=== PATIENT | male | born 1980 | race Caucasian/White ===

== ENCOUNTER 2016-07-26 11:34 | Inpatient (IN) | payer OTHER ==
[~2016-07-26] VITALS: Ht 190.5 cm; Wt 83.3 kg
--- NOTE | ~2016-07-26 | WRIGHTHP ---
[place], [place] PATIENT HISTORY AND PHYSICAL EXAM NAME: CARTER QUEZADA [facility] #: [id number] UNIT #: [id number] ROOM: 516 DOCTOR: HAYLIE HENDERSON DO BIRTHDATE: [birth year] DOS: PRIMARY CARE PHYSICIAN: None. The patient was seen and evaluated with the resident on 07/26/2016. Please see the resident's note for further details. ASSESSMENT: 1. Opiate dependence with acute withdrawal. 2. IV heroin abuse. 3. Normocytic anemia. 4. Hepatitis C diagnosed in 2009, which has never been treated. 5. Tobacco abuse. 6. Cocaine abuse. 7. Amphetamine abuse. 8. Depression. 9. Anxiety. PLAN: Continue medical stabilization with the current protocol. Continue supportive care. HAYLIE HENDERSON DO CM:HISPHYS:PATIENT HISTORY AND PHYSICAL EXAMINATION [id number] HAYLIE HENDERSON DO 07/26/16 1728 interface
[2016-07-26 13:05] LABS: BASO % 0.7 % (0.0-1.0); EOS # 0.3 10*3/uL (0.0-0.4); HEMATOCRIT 38.8 % (42.0-52.0); HEMOGLOBIN 13.1 g/dl (14.0-18.0); LYMPH # 2.2 10*3/uL (1.3-4.4); LYMPH % 38.1 % (27.0-41.0); MEAN CELL VOLUME 85.7 fl (80.0-94.0); MEAN CORPUSCULAR HGB 28.9 pg (27.0-31.0); MEAN CORPUSCULAR HGB CONC 33.8 g/dl (33.0-37.0); MEAN PLATELET VOLUME 9.7 fl (9.6-12.3); MONO # 0.4 10*3/uL (0.1-1.0); MONO % 6.5 % (3.0-9.0); NEUT # 2.9 10*3/uL (2.3-7.9); NEUT % 49.5 % (47.0-73.0); PLATELET COUNT AUTOMATED 181 10*3/uL (130-400); RED BLOOD COUNT 4.53 10*6/uL (4.50-5.90); RED CELL DISTRI WIDTH 13.7 % (0-14.5); WHITE BLOOD COUNT 5.8 10*3/uL (4.8-10.8)
[2016-07-26 13:14] LABS: INTERNATIONAL NORM RATIO 1.1 (2.0-3.5); PROTHROMBIN TIME 11.6 SECONDS (9.0-12.4)
[2016-07-26] MEDS ORDERED: KLONOPIN0.5 MG PO (13:18)
[2016-07-26] MEDS ORDERED: NEURONTIN800 MG PO (13:18)
[2016-07-26] MEDS ORDERED: CYMBALTA60 MG PO (13:19)
[2016-07-26] MEDS ORDERED: PHENERGAN25 M3 PO (13:19)
[2016-07-26] MEDS ORDERED: SEROQUEL400 M1 PO (13:19)
[2016-07-26 13:20] VITALS: BP 138/83
[2016-07-26 13:24] LABS: ALBUMIN 3.5 gm/dl (3.1-4.5); ALKALINE PHOSPHATASE 103 U/L (45-117); BILIRUBIN, TOTAL 0.7 mg/dl (0.2-1.0); BUN 6 mg/dl (7-24); CARBON DIOXIDE 28 mmol/L (21-32); CHLORIDE 102 mmol/L (98-107); EST GLOM FILT AFRICAN AMERICAN > 60 ml/min; GLUCOSE 103 mg/dL (65-99); POTASSIUM 3.9 mmol/L (3.5-5.1); SGOT/AST 36 IU/L (3-35); SGPT/ALT 37 U/L (12-78); SODIUM 137 mmol/L (136-145); TOTAL PROTEIN 9.2 gm/dL (6.4-8.2)
[2016-07-26 13:33] LABS: BILIRUBIN NEGATIVE (NEGATIVE); BLOOD NEGATIVE (NEGATIVE); CLARITY CLEAR (CLEAR); COLOR YELLOW (YELLOW); GLUCOSE NEGATIVE (NEGATIVE); KETONE NEGATIVE (NEGATIVE); LEUKO ESTERASE NEGATIVE (NEGATIVE); NITRITE NEGATIVE (NEGATIVE); PH 7.5 (5.0-9.0); PROTEIN NEGATIVE (NEGATIVE)
[2016-07-26 13:36] LABS: URINE AMPHETAMINES > 1000 (1000ng/ml); URINE BARBITURATES < 200 (200ng/ml); URINE COCAINE > 300 (300ng/ml)
[2016-07-26 13:46] LABS: URINE REFLEX COMMENT NO (NO); WBC 0-2 wbc/hpf (0-5)
[2016-07-26 16:00] VITALS: BP 134/76
[2016-07-26 20:00] VITALS: BP 108/82
[2016-07-27] VITALS: BP 97/58
[2016-07-27 08:00] VITALS: BP 125/88
== END 2016-07-27 09:58 | disposition left against medical advice (07) | DRG 894 ==
LOC: 5E 11:34
PROVIDERS: Emergency Medicine
DX: F11.23 Opioid dependence with withdrawal (principal); F32.9 Major depressive disorder, single episode, unspecified; G25.81 Restless legs syndrome; F14.10 Cocaine abuse, uncomplicated; F15.10 Other stimulant abuse, uncomplicated; F17.200 Nicotine dependence, unspecified, uncomplicated; B18.2 Chronic viral hepatitis C; F41.1 Generalized anxiety disorder; D64.9 Anemia, unspecified; F39 Unspecified mood [affective] disorder; Z53.21 Procedure and treatment not carried out due to patient leaving prior to being seen by health care provider; Z90.49 Acquired absence of other specified parts of digestive tract; Z80.49 Family history of malignant neoplasm of other genital organs; Z80.51 Family history of malignant neoplasm of kidney; Z79.899 Other long term (current) drug therapy

== ENCOUNTER 2016-09-01 14:26 | Inpatient (IN) | payer OTHER ==
[~2016-09-01] VITALS: Ht 190.5 cm; Wt 83.1 kg
[~2016-09-01 14:26] MED LIST: CYMBALTA60 MG PO; KLONOPIN0.5 MG PO; NEURONTIN800 MG PO; PHENERGAN25 M3 PO; SEROQUEL400 M1 PO
[2016-09-01 14:34] VITALS: BP 123/56
[2016-09-01 15:12] LABS: BASO % 0.5 % (0.0-1.0); EOS # 0.1 10*3/uL (0.0-0.4); EOS % 1.6 % (1.0-4.0); HEMATOCRIT 38.7 % (42.0-52.0); HEMOGLOBIN 12.8 g/dl (14.0-18.0); LYMPH # 2.4 10*3/uL (1.3-4.4); LYMPH % 37.8 % (27.0-41.0); MEAN CELL VOLUME 88.4 fl (80.0-94.0); MEAN CORPUSCULAR HGB 29.2 pg (27.0-31.0); MEAN CORPUSCULAR HGB CONC 33.1 g/dl (33.0-37.0); MONO # 0.4 10*3/uL (0.1-1.0); MONO % 6.2 % (3.0-9.0); NEUT # 3.5 10*3/uL (2.3-7.9); NEUT % 53.7 % (47.0-73.0); PLATELET COUNT AUTOMATED 187 10*3/uL (130-400); RED BLOOD COUNT 4.38 10*6/uL (4.50-5.90); RED CELL DISTRI WIDTH 13.9 % (0-14.5); WHITE BLOOD COUNT 6.5 10*3/uL (4.8-10.8)
[2016-09-01 15:13] LABS: BILIRUBIN 2+ (NEGATIVE); BLOOD NEGATIVE (NEGATIVE); CLARITY SL CLOUDY (CLEAR); COLOR YELLOW (YELLOW); GLUCOSE NEGATIVE (NEGATIVE); KETONE TRACE (NEGATIVE); LEUKO ESTERASE NEGATIVE (NEGATIVE); NITRITE POSITIVE (NEGATIVE); PROTEIN 1+ (NEGATIVE)
[2016-09-01 15:23] LABS: BACTERIA TRACE; EPITHELIAL CELLS 0-2; MUCOUS 3+; URINE REFLEX COMMENT YES (NO); WBC 0-2 wbc/hpf (0-5)
[2016-09-01 15:27] LABS: ALBUMIN 3.7 gm/dl (3.1-4.5); ALKALINE PHOSPHATASE 118 U/L (45-117); BILIRUBIN, TOTAL 0.9 mg/dl (0.2-1.0); BUN 9 mg/dl (7-24); CARBON DIOXIDE 28 mmol/L (21-32); CHLORIDE 107 mmol/L (98-107); EST GLOM FILT AFRICAN AMERICAN > 60 ml/min; GLUCOSE 132 mg/dL (65-99); SGOT/AST 171 IU/L (3-35); SGPT/ALT 256 U/L (12-78); SODIUM 144 mmol/L (136-145); TOTAL PROTEIN 8.4 gm/dL (6.4-8.2)
[2016-09-01 15:29] LABS: URINE AMPHETAMINES < 1000 (1000ng/ml); URINE BARBITURATES > 200 (200ng/ml); URINE COCAINE > 300 (300ng/ml)
[2016-09-01 15:35] LABS: THYROID STIM HORMONE (HS) 0.853 uIU/ml (0.358-4.75)
[2016-09-01 15:55] VITALS: BP 97/67
[2016-09-01] MEDS ORDERED: PHENERGAN25 M3 PO (17:51)
[2016-09-01 20:00] VITALS: BP 93/48
[2016-09-02] VITALS: BP 96/54
[2016-09-02 04:00] VITALS: BP 115/82
[2016-09-02 08:00] VITALS: BP 113/68
[2016-09-02 16:00] VITALS: BP 113/75
[2016-09-02 20:00] VITALS: BP 101/57
[2016-09-03] VITALS: BP 101/54
[2016-09-03 08:00] VITALS: BP 116/73
== END 2016-09-03 14:03 | disposition left against medical advice (07) | DRG 894 ==
LOC: ED 14:26 → 5E 14:47 → EDHOLD 14:47 → 5E 15:22
PROVIDERS: Nurse Practitioner Family
DX: F11.23 Opioid dependence with withdrawal (principal); R82.2 Biliuria; F13.239 Sedative, hypnotic or anxiolytic dependence with withdrawal, unspecified; R82.71 Bacteriuria; D64.9 Anemia, unspecified; R73.9 Hyperglycemia, unspecified; F41.1 Generalized anxiety disorder; F32.9 Major depressive disorder, single episode, unspecified; F17.210 Nicotine dependence, cigarettes, uncomplicated; F14.10 Cocaine abuse, uncomplicated; B18.2 Chronic viral hepatitis C; F10.239 Alcohol dependence with withdrawal, unspecified; E55.9 Vitamin D deficiency, unspecified; Z53.21 Procedure and treatment not carried out due to patient leaving prior to being seen by health care provider; Z71.6 Tobacco abuse counseling; Z90.49 Acquired absence of other specified parts of digestive tract; Z80.49 Family history of malignant neoplasm of other genital organs; Z80.51 Family history of malignant neoplasm of kidney; Z79.899 Other long term (current) drug therapy

== ENCOUNTER 2016-11-06 15:44 | Inpatient (IN) | payer OTHER ==
[~2016-11-06] VITALS: Ht 190.5 cm; Wt 84.8 kg
[2016-11-06 16:19] VITALS: BP 118/86
[2016-11-06] MEDS ORDERED: SUBOXONE 8 MG-1 EACH SL (16:19)
[2016-11-06 17:00] VITALS: BP 125/72
[2016-11-06 17:27] LABS: BILIRUBIN NEGATIVE (NEGATIVE); BLOOD NEGATIVE (NEGATIVE); CLARITY CLEAR (CLEAR); COLOR YELLOW (YELLOW); GLUCOSE NEGATIVE (NEGATIVE); KETONE TRACE (NEGATIVE); LEUKO ESTERASE NEGATIVE (NEGATIVE); NITRITE NEGATIVE (NEGATIVE); PH 5.5 (5.0-9.0); PROTEIN TRACE (NEGATIVE); SPECIFIC GRAVITY >= 1.030 (1.005-1.030)
[2016-11-06 17:32] LABS: BACTERIA 1+; EPITHELIAL CELLS 0-2; RBC 0-2 rbc/hpf (0-2); URINE REFLEX COMMENT NO (NO); WBC 0-2 wbc/hpf (0-5)
[2016-11-06 17:36] LABS: URINE AMPHETAMINES < 1000 (1000ng/ml); URINE BARBITURATES < 200 (200ng/ml); URINE COCAINE > 300 (300ng/ml)
[2016-11-06 17:54] LABS: BASO % 0.6 % (0.0-1.0); EOS # 0.2 10*3/uL (0.0-0.4); EOS % 4.2 % (1.0-4.0); HEMATOCRIT 36.7 % (42.0-52.0); HEMOGLOBIN 12.5 g/dl (14.0-18.0); LYMPH # 2.2 10*3/uL (1.3-4.4); LYMPH % 44.7 % (27.0-41.0); MEAN CELL VOLUME 88.9 fl (80.0-94.0); MEAN CORPUSCULAR HGB 30.3 pg (27.0-31.0); MEAN CORPUSCULAR HGB CONC 34.1 g/dl (33.0-37.0); MEAN PLATELET VOLUME 9.7 fl (9.6-12.3); MONO # 0.5 10*3/uL (0.1-1.0); MONO % 9.5 % (3.0-9.0); NEUT % 40.8 % (47.0-73.0); PLATELET COUNT AUTOMATED 133 10*3/uL (130-400); RED BLOOD COUNT 4.13 10*6/uL (4.50-5.90); RED CELL DISTRI WIDTH 13.8 % (0-14.5)
[2016-11-06 18:12] LABS: ALBUMIN 3.6 gm/dl (3.1-4.5); ALKALINE PHOSPHATASE 103 U/L (45-117); BILIRUBIN, TOTAL 0.6 mg/dl (0.2-1.0); BUN 14 mg/dl (7-24); CARBON DIOXIDE 30 mmol/L (21-32); CHLORIDE 104 mmol/L (98-107); EST GLOM FILT AFRICAN AMERICAN > 60 ml/min; GLUCOSE 81 mg/dL (65-99); POTASSIUM 3.6 mmol/L (3.5-5.1); SGOT/AST 29 IU/L (3-35); SGPT/ALT 42 U/L (12-78); SODIUM 140 mmol/L (136-145)
[2016-11-06 20:00] VITALS: BP 122/67
[2016-11-07] VITALS: BP 111/60
[2016-11-07 08:00] VITALS: BP 115/69
[2016-11-07] MEDS ORDERED: CYMBALTA60 MG PO (11:17)
[2016-11-07 12:00] VITALS: BP 133/72
[2016-11-07 16:00] VITALS: BP 127/82
== END 2016-11-07 18:20 | disposition left against medical advice (07) | DRG 894 ==
LOC: ED 15:44 → 5E 16:35 → EDHOLD 16:35 → 5E 16:40
PROVIDERS: Registered Nurse
DX: F11.23 Opioid dependence with withdrawal (principal); F32.9 Major depressive disorder, single episode, unspecified; F17.210 Nicotine dependence, cigarettes, uncomplicated; D64.9 Anemia, unspecified; F14.10 Cocaine abuse, uncomplicated; F41.1 Generalized anxiety disorder; Z53.21 Procedure and treatment not carried out due to patient leaving prior to being seen by health care provider; Z79.899 Other long term (current) drug therapy; Z90.49 Acquired absence of other specified parts of digestive tract; Z80.51 Family history of malignant neoplasm of kidney; Z80.49 Family history of malignant neoplasm of other genital organs

== ENCOUNTER 2016-12-10 13:20 | Inpatient (IN) | payer OTHER ==
[~2016-12-10] VITALS: Ht 190.5 cm; Wt 85.7 kg
[~2016-12-10 13:20] MED LIST changes: +SUBOXONE 8 MG-1 EACH SL
[2016-12-10 13:37] VITALS: BP 101/88
[2016-12-10 14:24] LABS: BASO % 0.4 % (0.0-1.0); EOS # 0.2 10*3/uL (0.0-0.4); EOS % 2.2 % (1.0-4.0); HEMATOCRIT 38.9 % (42.0-52.0); HEMOGLOBIN 12.6 g/dl (14.0-18.0); LYMPH # 2.3 10*3/uL (1.3-4.4); LYMPH % 32.4 % (27.0-41.0); MEAN CELL VOLUME 89.2 fl (80.0-94.0); MEAN CORPUSCULAR HGB 28.9 pg (27.0-31.0); MEAN CORPUSCULAR HGB CONC 32.4 g/dl (33.0-37.0); MEAN PLATELET VOLUME 9.6 fl (9.6-12.3); MONO # 0.4 10*3/uL (0.1-1.0); MONO % 5.2 % (3.0-9.0); NEUT # 4.2 10*3/uL (2.3-7.9); NEUT % 59.5 % (47.0-73.0); PLATELET COUNT AUTOMATED 166 10*3/uL (130-400); RED BLOOD COUNT 4.36 10*6/uL (4.50-5.90); RED CELL DISTRI WIDTH 13.5 % (0-14.5); WHITE BLOOD COUNT 7.1 10*3/uL (4.8-10.8)
[2016-12-10 14:41] LABS: ALBUMIN 3.5 gm/dl (3.1-4.5); ALKALINE PHOSPHATASE 109 U/L (45-117); BUN 6 mg/dl (7-24); CHLORIDE 102 mmol/L (98-107); CREATININE 0.95 mg/dL (0.70-1.30); MAGNESIUM 2.1 mg/dL (1.5-2.1); POTASSIUM 3.7 mmol/L (3.5-5.1); SGOT/AST 104 IU/L (3-35); SGPT/ALT 207 U/L (12-78); SODIUM 139 mmol/L (136-145)
[2016-12-10 15:14] LABS: BILIRUBIN 1+ (NEGATIVE); BLOOD NEGATIVE (NEGATIVE); CLARITY SL CLOUDY (CLEAR); COLOR YELLOW (YELLOW); GLUCOSE NEGATIVE (NEGATIVE); KETONE TRACE (NEGATIVE); LEUKO ESTERASE NEGATIVE (NEGATIVE); NITRITE NEGATIVE (NEGATIVE); SPECIFIC GRAVITY 1.025 (1.005-1.030)
[2016-12-10 15:20] LABS: BACTERIA 1+; EPITHELIAL CELLS 0-2; MUCOUS 1+; RBC 0-2 rbc/hpf (0-2)
[2016-12-10 15:23] LABS: URINE AMPHETAMINES < 1000 (1000ng/ml); URINE BARBITURATES < 200 (200ng/ml); URINE BENZODIAZEPINES > 200 (200ng/ml); URINE CANNABINOIDS (THC) > 50 (50ng/ml); URINE COCAINE < 300 (300ng/ml); URINE METHADONE > 300 (300ng/ml); URINE OPIATES > 300 (300ng/ml)
[2016-12-10 15:24] LABS: URINE PHENCYCLIDINE < 25 (25ng/ml)
[2016-12-10] MEDS ORDERED: SEROQUEL100 MG PO (17:11)
[2016-12-10 17:24] VITALS: BP 121/72
--- NOTE | 2016-12-10 17:33 | NUR ---
36 year old male admitted to room # 516 for stabilization. Reports an addiction to heroin last used yesterday 12/09/16 prior to admission. Compliant with admission procedure. Patient states anxiety, able to sit still, compliant with admission process able to focus eyes on nurse during interview. See assessment forms for additional information about patient status.
[2016-12-10 17:46] LABS: INTERNATIONAL NORM RATIO 1.1 (2.0-3.5)
--- NOTE | 2016-12-10 18:14 | NUR ---
PT COMPLAINING NAUSEA, ANXIETY, MUSCLE ACHES AND STATES CRAVING FOR HEROIN. PRN MEDICAIONS GIVEN, SEE MAR.
--- NOTE | 2016-12-10 18:58 | NUR ---
VARIFIED PTS HOME MEDICAION WITH [facility]. SOME CHANGES MADE, NOTIFIED DR. TRUONG.
[2016-12-10 20:00] VITALS: BP 122/73
--- NOTE | 2016-12-10 20:00 | NUR ---
PT. RESTING IN BED; VOICES NO C/O AT THIS TIME. CALL LIGHT WITHIN REACH.
--- NOTE | 2016-12-10 22:00 | NUR ---
TOOK PO MEDICATIONS WITHOUT DIFFICULTY. ALSO MEDICATED WITH REQUIP FOR RESTLESS LEGS.
[2016-12-11] VITALS: BP 98/54
[2016-12-11 04:00] VITALS: BP 103/71
--- NOTE | 2016-12-11 04:00 | NUR ---
RESTING IN BED WITH EYES CLOSED. MEDICATIONS GIVEN EARLIER APPARENTLY EFFECTIVE.
--- NOTE | 2016-12-11 06:00 | NUR ---
RESTING IN BED WITH EYES CLOSED. CALL LIGHT WITHIN REACH.
[2016-12-11 08:00] VITALS: BP 119/63
--- NOTE | 2016-12-11 09:00 | NUR ---
PT C/O WITHDRAWL SYMPTOMS AND REQUESTED PRN MEDICATIONS, ADMINISTERED KLONOPIN AND ROBAXIN, PT REPORTED NAUSEA AND REQUESTED MEDICATION, ZOFRAN WAS ORDERED AND PT REFUSED ZOFRAN STATING THAT HE WANTS PHENERGAN, AWAITING ORDER FOR PHENERGAN
--- NOTE | 2016-12-11 09:03 | NUR ---
PT REFUSEDOVENOX AT THIS TIME, EDUCATION PROVIDED ON THE IMPORTANCE OF TAKING MEDICATION, INEFFECTIVE AT THIS TIME
[2016-12-11 12:00] VITALS: BP 125/75
--- NOTE | 2016-12-11 14:30 | NUR ---
PT LEFT AMA
== END 2016-12-11 14:30 | disposition left against medical advice (07) | DRG 894 ==
LOC: ED 13:20 → 5E 14:13 → EDHOLD 14:13 → 5E 15:38
PROVIDERS: Emergency Medicine; Internal Medicine; ADMIT Internal Medicine
DX: F11.23 Opioid dependence with withdrawal (principal); F33.9 Major depressive disorder, recurrent, unspecified; B19.20 Unspecified viral hepatitis C without hepatic coma; F13.230 Sedative, hypnotic or anxiolytic dependence with withdrawal, uncomplicated; F41.1 Generalized anxiety disorder; F19.90 Other psychoactive substance use, unspecified, uncomplicated; D64.9 Anemia, unspecified; Z53.21 Procedure and treatment not carried out due to patient leaving prior to being seen by health care provider; F10.10 Alcohol abuse, uncomplicated; R74.0 Nonspecific elevation of levels of transaminase and lactic acid dehydrogenase [LDH]; Z71.6 Tobacco abuse counseling; Z79.899 Other long term (current) drug therapy; Z90.49 Acquired absence of other specified parts of digestive tract; Z72.0 Tobacco use; Z80.8 Family history of malignant neoplasm of other organs or systems

== ENCOUNTER 2017-10-07 17:37 | Inpatient (IN) | payer OTHER ==
[~2017-10-07] VITALS: Ht 190.5 cm; Wt 76.8 kg
--- NOTE | ~2017-10-07 | EKG ---
[place], [place] ELECTROCARDIOGRAM REPORT NAME: CARTER QUEZADA UNIT #: [id number] ROOM: [facility] DOCTOR: JC DRAFT REPORT BIRTHDATE: [birth year] [facility] Test Date: 2017-10-07 Test Time: 18:33:09 Pat Name: CARTER QUEZADA Department: Room: Gender: Vehicle Return Associate: IMAN : 1980 Requested By: HAYLIE HENDERSON Order Number: [id number] Reading MD: Belinda Clements MD Measurements Intervals [place] Rate: 68 P: 32 W[place]: 148 QRS: 58 QRSD: 94 T: 42 QT: 384 QTc: 409 Interpretive Statements Sinus rhythm ST elev, probable normal early repol pattern Electronically Signed On 10-08-2017 8:18:22 PDT by Belinda Clements MD CM:EKGRPT:ELECTROCARDIOGRAM REPORT [id number] HAYLIE JONES DRAFT REPORT HAYLIE HENDERSON DO
[~2017-10-07 17:37] MED LIST changes: +SEROQUEL100 MG PO
[2017-10-07 17:40] VITALS: BP 113/72
[2017-10-07 18:18] LABS: BILIRUBIN 1+ (NEGATIVE); BLOOD NEGATIVE (NEGATIVE); CLARITY CLEAR (CLEAR); COLOR YELLOW (YELLOW); GLUCOSE NEGATIVE (NEGATIVE); KETONE TRACE (NEGATIVE); LEUKO ESTERASE NEGATIVE (NEGATIVE); NITRITE NEGATIVE (NEGATIVE); PH 5.5 (5.0-9.0); SPECIFIC GRAVITY >= 1.030 (1.005-1.030)
[2017-10-07 18:25] LABS: URINE AMPHETAMINES < 1000 (1000ng/ml); URINE BARBITURATES > 200 (200ng/ml); URINE BENZODIAZEPINES > 200 (200ng/ml); URINE CANNABINOIDS (THC) < 50 (50ng/ml); URINE COCAINE > 300 (300ng/ml); URINE METHADONE < 300 (300ng/ml); URINE OPIATES < 300 (300ng/ml); URINE PHENCYCLIDINE < 25 (25ng/ml)
[2017-10-07 18:30] LABS: BASO % 0.6 % (0.0-1.0); EOS # 0.2 10*3/uL (0.0-0.4); EOS % 4.4 % (1.0-4.0); HEMATOCRIT 38.7 % (42.0-52.0); HEMOGLOBIN 13.1 g/dl (14.0-18.0); LYMPH # 2.5 10*3/uL (1.3-4.4); LYMPH % 47.5 % (27.0-41.0); MEAN CELL VOLUME 85.4 fl (80.0-94.0); MEAN CORPUSCULAR HGB 28.9 pg (27.0-31.0); MEAN CORPUSCULAR HGB CONC 33.9 g/dl (33.0-37.0); MEAN PLATELET VOLUME 10.3 fl (9.6-12.3); MONO # 0.4 10*3/uL (0.1-1.0); MONO % 6.6 % (3.0-9.0); NEUT # 2.2 10*3/uL (2.3-7.9); NEUT % 40.7 % (47.0-73.0); PLATELET COUNT AUTOMATED 142 10*3/uL (130-400); RED BLOOD COUNT 4.53 10*6/uL (4.50-5.90); RED CELL DISTRI WIDTH 13.9 % (0-14.5); WHITE BLOOD COUNT 5.3 10*3/uL (4.8-10.8)
[2017-10-07 18:32] LABS: BACTERIA TRACE; MUCOUS 2+; WBC 0-2 wbc/hpf (0-5)
[2017-10-07 18:45] LABS: ALBUMIN 3.8 gm/dl (3.1-4.5); ALKALINE PHOSPHATASE 92 U/L (45-117); BUN 11 mg/dl (7-24); CHLORIDE 106 mmol/L (98-107); LIPASE 70 U/L (73-393); POTASSIUM 3.7 mmol/L (3.5-5.1); SGOT/AST 16 IU/L (3-35); SGPT/ALT 23 U/L (12-78); SODIUM 141 mmol/L (136-145); TOTAL PROTEIN 8.1 gm/dL (6.4-8.2)
[2017-10-07 18:46] LABS: ETHYL ALCOHOL < 3.0 mg/dl (<3)
[2017-10-07 19:16] LABS: ACT PARTIAL THROMBO TIME 26.1 SECONDS (20.8-31.5); INTERNATIONAL NORM RATIO 1.1 (2.0-3.5)
[2017-10-07 19:50] VITALS: BP 123/65
[2017-10-07 20:00] VITALS: BP 142/690
[2017-10-07] MEDS ORDERED: GABAPENTIN800 MG PO (20:18)
[2017-10-07] MEDS ORDERED: QUETIAPINE FUM100 M3 PO (20:19)
[2017-10-07] MEDS ORDERED: PHENERGAN25 M3 PO (20:19)
[2017-10-07] MEDS ORDERED: 'CLONIDINE0.1 MG PO (20:19)
[2017-10-07] MEDS ORDERED: BUPRENORPHINE HY8 MG SL (20:21)
[2017-10-08] VITALS: BP 92/52
[2017-10-08 08:00] VITALS: BP 97/57
[2017-10-09 06:13] LABS: HIV 1+2 AB + HIV1 P24 AG Non Reactive (Non Reactive)
== END 2017-10-08 14:31 | disposition left against medical advice (07) | DRG 894 ==
LOC: ED 17:37 → 5E 18:17 → EDHOLD 18:17 → 5E 19:03
PROVIDERS: Emergency Medicine; Internal Medicine
DX: F11.23 Opioid dependence with withdrawal (principal); F11.29 Opioid dependence with unspecified opioid-induced disorder; L02.413 Cutaneous abscess of right upper limb; L02.414 Cutaneous abscess of left upper limb; B19.20 Unspecified viral hepatitis C without hepatic coma; F32.9 Major depressive disorder, single episode, unspecified; F14.10 Cocaine abuse, uncomplicated; D64.9 Anemia, unspecified; F41.1 Generalized anxiety disorder; F13.239 Sedative, hypnotic or anxiolytic dependence with withdrawal, unspecified; R73.9 Hyperglycemia, unspecified; R82.71 Bacteriuria; Z53.21 Procedure and treatment not carried out due to patient leaving prior to being seen by health care provider; Z72.0 Tobacco use; Z71.6 Tobacco abuse counseling; Z90.49 Acquired absence of other specified parts of digestive tract; Z80.51 Family history of malignant neoplasm of kidney; Z80.8 Family history of malignant neoplasm of other organs or systems; Z79.899 Other long term (current) drug therapy

== ENCOUNTER 2018-07-14 10:26 | Inpatient (IN) | payer OTHER ==
[~2018-07-14] VITALS: Ht 190.5 cm; Wt 82.6 kg
--- NOTE | ~2018-07-14 | EKG ---
[place], [place] ELECTROCARDIOGRAM REPORT NAME: CARTER QUEZADA UNIT #: [id number] ROOM: 532 DOCTOR: JC DRAFT REPORT BIRTHDATE: [birth year] [facility] Test Date: 2018-07-14 Test Time: 14:01:41 Pat Name: CARTER QUEZADA Department: Room: 532 1 Gender: M Lead Housekeeper: Esther Lopez : 1980 Requested By: HAL LYNNE Order Number: [id number] Reading MD: Pop Oglesby MD Measurements Intervals [place] Rate: 53 P: 14 [place]: 163 QRS: 41 QRSD: 91 T: 28 QT: 411 QTc: 386 Interpretive Statements Sinus rhythm Abnormal R-wave progression, early transition ST elevation suggests early repolarization changes. Compared to ECG 10/07/2017 18:33:09 No significant changes Electronically Signed On 07-15-2018 16:02:29 PDT by Pop Oglesby MD CM:EKGRPT:ELECTROCARDIOGRAM REPORT [id number] HAL JONES DRAFT REPORT HAL LYNNE DO
[~2018-07-14 10:26] MED LIST changes: +'CLONIDINE0.1 MG PO; +BUPRENORPHINE HY8 MG SL; +GABAPENTIN800 MG PO; +QUETIAPINE FUM100 M3 PO
--- NOTE | 2018-07-14 11:28 | NUR ---
PATIENT MEETS [facility]. CINA=15. PATIENT IS WANTING RESIDENTIAL TREATMENT FOR HIS AFTERCARE PLAN. [place] STAFF PROVIDED REFERRALS TO PATIENT. [place] STAFF WILL FOLLOW UP WITH PATIENT CONCERNING HIS AFTERCARE PLAN. NETTE SINGH B.A. EMBOSSOGRAPH OPERATOR
--- NOTE | 2018-07-14 11:45 | NUR ---
38 year old MALE admitted to room # 532 for stabilization. Reports an addiction to OPIATE/CRACK last used 24 hours prior to admission. Compliant with admission procedure. Patient denies any anxiety, but is unable to sit still, taps toes to floor continuously, looks about room, unable to focus eyes on nurse during interview. See assessment forms for additional information about patient status.
[2018-07-14 12:11] VITALS: BP 130/79
--- NOTE | 2018-07-14 12:36 | NUR ---
DR CALL INFORMED OF PT'S ARRIVAL.
[2018-07-14] MEDS ORDERED: KLONOPIN2 M1 PO (12:49)
[2018-07-14] MEDS ORDERED: KLONOPIN1 M1 PO (12:49)
[2018-07-14] MEDS ORDERED: ATARAX,VISTARIL50 MG PO (12:49)
[2018-07-14] MEDS ORDERED: BUSPAR15 MG PO (12:50)
[2018-07-14] MEDS ORDERED: CYMBALTA60 MG PO (12:50)
--- NOTE | 2018-07-14 12:50 | NUR ---
MED REC REVIEWED AND UPDATED BY LIST FROM [facility].
[2018-07-14 13:26] LABS: BASO % 0.9 % (0.0-1.0); EOS # 0.2 10*3/uL (0.0-0.4); EOS % 4.5 % (1.0-4.0); HEMATOCRIT 44.5 % (42.0-52.0); HEMOGLOBIN 14.4 g/dl (14.0-18.0); LYMPH # 2.4 10*3/uL (1.3-4.4); LYMPH % 52.6 % (27.0-41.0); MEAN CELL VOLUME 87.9 fl (80.0-94.0); MEAN CORPUSCULAR HGB 28.5 pg (27.0-31.0); MEAN CORPUSCULAR HGB CONC 32.4 g/dl (33.0-37.0); MEAN PLATELET VOLUME 10.2 fl (9.6-12.3); MONO # 0.3 10*3/uL (0.1-1.0); MONO % 6.7 % (3.0-9.0); NEUT # 1.6 10*3/uL (2.3-7.9); NEUT % 35.1 % (47.0-73.0); PLATELET COUNT AUTOMATED 125 10*3/uL (130-400); RED BLOOD COUNT 5.06 10*6/uL (4.50-5.90); WHITE BLOOD COUNT 4.5 10*3/uL (4.8-10.8)
[2018-07-14 13:37] LABS: INTERNATIONAL NORM RATIO 1.1 (2.0-3.5)
[2018-07-14 13:42] LABS: BUN 13 mg/dl (7-24); CHLORIDE 103 mmol/L (98-107); CREATININE 1.01 mg/dL (0.70-1.30); POTASSIUM 3.8 mmol/L (3.5-5.1); SGOT/AST 61 IU/L (3-35); SGPT/ALT 113 U/L (12-78); SODIUM 136 mmol/L (136-145)
[2018-07-14 13:43] LABS: ALKALINE PHOSPHATASE 90 U/L (45-117); TOTAL PROTEIN 8.8 gm/dL (6.4-8.2)
[2018-07-14 13:51] LABS: ETHYL ALCOHOL < 3.0 mg/dl (<3)
--- NOTE | 2018-07-14 14:50 | NUR ---
MEDICATED WITH ROBAXIN AND VISTARIL FOR COMPLAINTS OF ANXIETY AND MUSCLE ACHES.
[2018-07-14 15:12] LABS: BILIRUBIN NEGATIVE (NEGATIVE); BLOOD NEGATIVE (NEGATIVE); CLARITY CLEAR (CLEAR); COLOR YELLOW (YELLOW); GLUCOSE NEGATIVE (NEGATIVE); KETONE NEGATIVE (NEGATIVE); LEUKO ESTERASE NEGATIVE (NEGATIVE); NITRITE NEGATIVE (NEGATIVE)
[2018-07-14 15:26] LABS: URINE AMPHETAMINES < 1000 (1000ng/ml); URINE BARBITURATES > 200 (200ng/ml); URINE BENZODIAZEPINES < 200 (200ng/ml); URINE CANNABINOIDS (THC) < 50 (50ng/ml); URINE COCAINE > 300 (300ng/ml); URINE METHADONE < 300 (300ng/ml); URINE OPIATES < 300 (300ng/ml)
[2018-07-14 15:33] LABS: URINE PHENCYCLIDINE < 25 (25ng/ml)
[2018-07-14 16:00] VITALS: BP 135/94
[2018-07-14 16:01] LABS: BACTERIA 1+; EPITHELIAL CELLS 0-2; MUCOUS TRACE; RBC 0-2 rbc/hpf (0-2); WBC 0-2 wbc/hpf (0-5)
--- NOTE | 2018-07-14 16:01 | NUR ---
[place] STAFF SENT PATIENT'S ASSESSMENT TO [facility] FOR REVIEW. [place] STAFF WILL FOLLOW UP WITH FACILITY. NETTE SINGH B.A. ITINERANT TEACHER ASSISTANT
--- NOTE | 2018-07-14 16:22 | NUR ---
ACCREDITATION COORDINATOR REMOVED PER ORDER.
[2018-07-14 20:00] VITALS: BP 100/45
[2018-07-15] VITALS: BP 96/52
[2018-07-15 08:00] VITALS: BP 116/74
[2018-07-15 11:41] VITALS: BP 138/67
--- NOTE | 2018-07-15 13:43 | NUR ---
PATIENT IS SCHEDULED TO GO TO [facility] ON June UPON DISCHARGE. THE FACILITY WILL PROVIDE TRANSPORTATION. [place] STAFF WILL CALL AND SET IT UP. NETTE SINGH B.A. [employer] PROMOTER
[2018-07-15 15:58] VITALS: BP 130/76
[2018-07-15 20:00] VITALS: BP 128/78
[2018-07-16] VITALS: BP 140/89
[2018-07-16 08:00] VITALS: BP 117/90
--- NOTE | 2018-07-16 09:44 | NUR ---
PT RESTING IN BED. NO DISTRESS NOTED/ NO VOICED C/O. WILL MONITOR
[2018-07-16 12:00] VITALS: BP 141/81
[2018-07-16 16:00] VITALS: BP 135/80
--- NOTE | 2018-07-16 16:47 | NUR ---
PT RSETING IN BED. NO DISTRESS NOTED. WILL MONITOR
[2018-07-16 20:00] VITALS: BP 147/86
[2018-07-17] VITALS: BP 137/91
[2018-07-17 08:00] VITALS: BP 160/86
[2018-07-17] MEDS ORDERED: ROBAXIN-750750 MG PO (08:09)
--- NOTE | 2018-07-17 10:25 | NUR ---
Discharge instructions reviewed with patient/family. Patient receptive and verbalizes understanding. Follow-up care arranged. Written instructions given to patient/family. MARIA T REARDON
== END 2018-07-17 10:25 | disposition home or self-care (01) | DRG 948 ==
LOC: 5E 10:26
PROVIDERS: Student in an Organized Health Care Education/Training Program; ADMIT Internal Medicine
DX: R74.0 Nonspecific elevation of levels of transaminase and lactic acid dehydrogenase [LDH] (principal); F11.23 Opioid dependence with withdrawal; Z71.6 Tobacco abuse counseling; F32.9 Major depressive disorder, single episode, unspecified; F41.1 Generalized anxiety disorder; D64.9 Anemia, unspecified; F17.210 Nicotine dependence, cigarettes, uncomplicated; F14.10 Cocaine abuse, uncomplicated; Z90.49 Acquired absence of other specified parts of digestive tract; B19.20 Unspecified viral hepatitis C without hepatic coma; Z80.51 Family history of malignant neoplasm of kidney; Z80.8 Family history of malignant neoplasm of other organs or systems

== ENCOUNTER 2018-09-01 12:53 | Emergency (ER) | payer OTHER ==
[~2018-09-01] VITALS: Ht 190.5 cm; Wt 93.0 kg
[~2018-09-01 12:53] MED LIST changes: +ATARAX,VISTARIL50 MG PO; +BUSPAR15 MG PO; +KLONOPIN1 M1 PO; +KLONOPIN2 M1 PO; +ROBAXIN-750750 MG PO
== END 2018-09-01 18:09 | disposition left against medical advice (07) ==
LOC: ED 12:53
DX: S61.201A Unspecified open wound of left index finger without damage to nail, initial encounter (principal); F17.200 Nicotine dependence, unspecified, uncomplicated; Z53.21 Procedure and treatment not carried out due to patient leaving prior to being seen by health care provider; X58.XXXA Exposure to other specified factors, initial encounter; Y93.89 Activity, other specified; Y92.89 Other specified places as the place of occurrence of the external cause; Y99.8 Other external cause status

== ENCOUNTER 2020-07-11 12:09 | Inpatient (IN) | payer OTHER ==
[~2020-07-11] VITALS: Ht 190.5 cm; Wt 90.0 kg
[2020-07-11] MEDS ORDERED: KLONOPIN2 M1 PO (12:29)
[2020-07-11 14:25] LABS: EOS # 0.2 10*3/uL (0.0-0.4); EOS % 5.1 % (1.0-4.0); HEMATOCRIT 44.4 % (42.0-52.0); LYMPH # 1.9 10*3/uL (1.3-4.4); LYMPH % 49.6 % (27.0-41.0); MEAN CELL VOLUME 88.3 fl (80.0-94.0); MEAN CORPUSCULAR HGB 27.8 pg (27.0-31.0); MEAN CORPUSCULAR HGB CONC 31.5 g/dl (33.0-37.0); MEAN PLATELET VOLUME 10.6 fl (9.6-12.3); MONO # 0.3 10*3/uL (0.1-1.0); MONO % 8.2 % (3.0-9.0); NEUT # 1.4 10*3/uL (2.3-7.9); NEUT % 35.8 % (47.0-73.0); PLATELET COUNT AUTOMATED 107 10*3/uL (130-400); RED BLOOD COUNT 5.03 10*6/uL (4.50-5.90); RED CELL DISTRI WIDTH 13.8 % (0-14.5); WHITE BLOOD COUNT 3.9 10*3/uL (4.8-10.8)
[2020-07-11 14:33] LABS: BILIRUBIN Negative (Negative); BLOOD Negative (Negative); CLARITY Clear (Clear); COLOR Dark Yellow (Yellow); GLUCOSE Negative (Negative); KETONE Negative (Negative); LEUKO ESTERASE Negative (Negative); NITRITE Negative (Negative); SPECIFIC GRAVITY 1.025 (1.001-1.030)
[2020-07-11 14:37] LABS: INTERNATIONAL NORM RATIO 1.3 (2.0-3.5)
[2020-07-11 14:39] LABS: ALBUMIN 3.3 gm/dl (3.1-4.5); ALKALINE PHOSPHATASE 113 U/L (45-117); BUN 11 mg/dl (7-24); CHLORIDE 108 mmol/L (98-107); CREATININE 0.89 mg/dL (0.70-1.30); POTASSIUM 4.2 mmol/L (3.5-5.1); SGOT/AST 58 IU/L (3-35); SGPT/ALT 105 U/L (12-78); SODIUM 140 mmol/L (136-145); TOTAL PROTEIN 7.7 gm/dL (6.4-8.2)
[2020-07-11 14:43] LABS: EPITHELIAL CELLS 0-2; FINE GRANULAR CAST 0-2; MUCOUS 1+; RBC 0-2 rbc/hpf (0-2); URINE AMPHETAMINES > 1000 (1000ng/ml); URINE BARBITURATES < 200 (200ng/ml); URINE BENZODIAZEPINES > 200 (200ng/ml); URINE CANNABINOIDS (THC) < 50 (50ng/ml); URINE COCAINE > 300 (300ng/ml); URINE METHADONE < 300 (300ng/ml); URINE OPIATES < 300 (300ng/ml); WBC 0-2 wbc/hpf (0-5)
[2020-07-11 14:52] LABS: URINE PHENCYCLIDINE < 25 (25ng/ml)
[2020-07-11 14:52] LABS: ETHYL ALCOHOL < 3.0 mg/dl (<3)
[2020-07-11 16:00] VITALS: BP 124/95
[2020-07-11 20:00] VITALS: BP 110/69
[2020-07-12] VITALS: BP 95/65
[2020-07-12 08:00] VITALS: BP 109/66
[2020-07-12 12:00] VITALS: BP 122/76
[2020-07-12 16:00] VITALS: BP 131/94
[2020-07-12 20:00] VITALS: BP 137/87
[2020-07-13] VITALS: BP 105/51
[2020-07-13 05:06] LABS: HEP B CORE AB, IGM Negative (Negative); HEPATITIS B SURFACE AG Negative (Negative)
[2020-07-13 08:00] VITALS: BP 138/95
[2020-07-13 08:21] LABS: HEPATITIS C VIRUS ANTIBODY >11.0 s/co (0.0-0.9)
[2020-07-13 12:00] VITALS: BP 120/78
[2020-07-13 16:00] VITALS: BP 106/63
[2020-07-13 20:00] VITALS: BP 125/74
[2020-07-14] VITALS: BP 121/76
[2020-07-14 08:00] VITALS: BP 128/85
[2020-07-14] MEDS ORDERED: ATARAX,VISTARIL50 MG PO (08:25)
== END 2020-07-14 09:08 | disposition home or self-care (01) | DRG 773 ==
LOC: 4E 12:09
PROVIDERS: Hospitalist; ADMIT Family Medicine; ATTEND Family Medicine
DX: F11.23 Opioid dependence with withdrawal (principal); F15.23 Other stimulant dependence with withdrawal; F14.23 Cocaine dependence with withdrawal; F41.1 Generalized anxiety disorder; B19.20 Unspecified viral hepatitis C without hepatic coma; F32.9 Major depressive disorder, single episode, unspecified; E44.1 Mild protein-calorie malnutrition; E87.8 Other disorders of electrolyte and fluid balance, not elsewhere classified; R79.89 Other specified abnormal findings of blood chemistry; D69.6 Thrombocytopenia, unspecified; D72.819 Decreased white blood cell count, unspecified; F17.210 Nicotine dependence, cigarettes, uncomplicated; Z71.6 Tobacco abuse counseling; Z68.24 Body mass index [BMI] 24.0-24.9, adult; Z90.49 Acquired absence of other specified parts of digestive tract; Z80.49 Family history of malignant neoplasm of other genital organs

== ENCOUNTER 2021-09-26 10:14 | Inpatient (IN) | payer OTHER ==
[~2021-09-26] VITALS: Ht 187.9 cm; Wt 79.3 kg
[2021-09-26 11:05] VITALS: BP 113/68
[2021-09-26] MEDS ORDERED: BUPRENORPHINE HY8 MG SL (11:36)
[2021-09-26 12:06] LABS: BILIRUBIN Negative (Negative); BLOOD Negative (Negative); CLARITY Clear (Clear); COLOR Dark Yellow (Yellow); GLUCOSE Negative (Negative); KETONE Trace (Negative); LEUKO ESTERASE Negative (Negative); NITRITE Negative (Negative); SPECIFIC GRAVITY >= 1.030 (1.001-1.030)
[2021-09-26 12:14] LABS: URINE AMPHETAMINES < 1000 (1000ng/ml); URINE BARBITURATES < 200 (200ng/ml); URINE BENZODIAZEPINES > 200 (200ng/ml); URINE CANNABINOIDS (THC) < 50 (50ng/ml); URINE COCAINE > 300 (300ng/ml); URINE METHADONE < 300 (300ng/ml); URINE OPIATES < 300 (300ng/ml)
[2021-09-26 12:18] LABS: MUCOUS 1+; RBC 0-2 rbc/hpf (0-2); WBC 0-2 wbc/hpf (0-5)
[2021-09-26 12:23] LABS: URINE PHENCYCLIDINE < 25 (25ng/ml)
[2021-09-26 12:31] LABS: ALKALINE PHOSPHATASE 108 U/L (45-117); BUN 17 mg/dl (7-24); CHLORIDE 107 mmol/L (98-107); CREATININE 0.88 mg/dL (0.70-1.30); POTASSIUM 4.3 mmol/L (3.5-5.1); SGOT/AST 84 IU/L (3-35); SGPT/ALT 105 U/L (12-78); SODIUM 134 mmol/L (136-145); TOTAL PROTEIN 8.1 gm/dL (6.4-8.2)
[2021-09-26 12:39] LABS: BASO % 0.8 % (0.0-1.0); EOS # 0.2 10*3/uL (0.0-0.4); HEMATOCRIT 37.7 % (42.0-52.0); LYMPH # 1.6 10*3/uL (1.3-4.4); LYMPH % 39.3 % (27.0-41.0); MEAN CELL VOLUME 82.9 fl (80.0-94.0); MEAN CORPUSCULAR HGB 28.8 pg (27.0-31.0); MEAN CORPUSCULAR HGB CONC 34.7 g/dl (33.0-37.0); MEAN PLATELET VOLUME 10.8 fl (9.6-12.3); MONO # 0.4 10*3/uL (0.1-1.0); NEUT # 1.8 10*3/uL (2.3-7.9); NEUT % 45.6 % (47.0-73.0); PLATELET COUNT AUTOMATED 107 10*3/uL (130-400); RED BLOOD COUNT 4.55 10*6/uL (4.50-5.90); RED CELL DISTRI WIDTH 13.7 % (0-14.5)
[2021-09-26 16:54] LABS: INTERNATIONAL NORM RATIO 1.2 (2.0-3.5)
[2021-09-26 17:45] VITALS: BP 104/81
[2021-09-26 18:03] VITALS: BP 98/61
[2021-09-26 20:00] VITALS: BP 92/56
[2021-09-27] VITALS: BP 107/54; BP 92/59
[2021-09-27 08:00] VITALS: BP 99/51
[2021-09-27 12:00] VITALS: BP 121/68
[2021-09-27 15:51] VITALS: BP 108/69
[2021-09-27 20:00] VITALS: BP 116/68
[2021-09-28] VITALS: BP 120/68
[2021-09-28 08:00] VITALS: BP 115/84
[2021-09-28 16:00] VITALS: BP 121/65
[2021-09-28 20:00] VITALS: BP 130/97
[2021-09-29] VITALS: BP 110/77
[2021-09-29 08:00] VITALS: BP 117/98; BP 120/70
[2021-09-29] MEDS ORDERED: DOXYCYCLINE MO100 MG PO (12:26)
[2021-09-29] MEDS ORDERED: PREDNISONE10 MG PO (12:26)
[2021-09-29] MEDS ORDERED: LORAZEPAM2 MG PO (12:26)
== END 2021-09-29 13:10 | disposition home or self-care (01) | DRG 774 ==
LOC: ED 10:14 → EDHOLD 12:13 → 4E 12:13
PROVIDERS: Internal Medicine; Nurse Practitioner Family; ADMIT Internal Medicine; ATTEND Internal Medicine
DX: F13.232 Sedative, hypnotic or anxiolytic dependence with withdrawal with perceptual disturbance (principal); F19.239 Other psychoactive substance dependence with withdrawal, unspecified; F17.213 Nicotine dependence, cigarettes, with withdrawal; B18.2 Chronic viral hepatitis C; E87.1 Hypo-osmolality and hyponatremia; L20.9 Atopic dermatitis, unspecified; F14.10 Cocaine abuse, uncomplicated; F41.9 Anxiety disorder, unspecified; F32.9 Major depressive disorder, single episode, unspecified; F41.1 Generalized anxiety disorder; D61.818 Other pancytopenia; R74.01 Elevation of levels of liver transaminase levels; D72.10 Eosinophilia, unspecified; F32.A Depression, unspecified; S81.802A Unspecified open wound, left lower leg, initial encounter; S81.801A Unspecified open wound, right lower leg, initial encounter; X58.XXXA Exposure to other specified factors, initial encounter; Y93.89 Activity, other specified; Z90.49 Acquired absence of other specified parts of digestive tract; Z80.51 Family history of malignant neoplasm of kidney; Z80.8 Family history of malignant neoplasm of other organs or systems; Z81.1 Family history of alcohol abuse and dependence; Z71.6 Tobacco abuse counseling; Y92.89 Other specified places as the place of occurrence of the external cause; Y99.8 Other external cause status

== ENCOUNTER 2021-12-04 09:43 | Inpatient (IN) | payer OTHER ==
[~2021-12-04] VITALS: Ht 188 cm; Wt 82.7 kg
[~2021-12-04 09:43] MED LIST changes: +DOXYCYCLINE MO100 MG PO; +LORAZEPAM2 MG PO; +PREDNISONE10 MG PO
[2021-12-04 09:50] VITALS: BP 119/90
[2021-12-04 10:48] LABS: HEMATOCRIT 40.1 % (42.0-52.0); MEAN CELL VOLUME 84.4 fl (80.0-94.0); MEAN CORPUSCULAR HGB 28.4 pg (27.0-31.0); MEAN CORPUSCULAR HGB CONC 33.7 g/dl (33.0-37.0); PLATELET COUNT AUTOMATED 104 10*3/uL (130-400); RED BLOOD COUNT 4.75 10*6/uL (4.50-5.90); WHITE BLOOD COUNT 4.5 10*3/uL (4.8-10.8)
[2021-12-04 11:04] LABS: ALKALINE PHOSPHATASE 93 U/L (45-117); BUN 19 mg/dl (7-24); CHLORIDE 109 mmol/L (98-107); CPK 109 U/L (39-308); CREATININE 0.84 mg/dL (0.70-1.30); POTASSIUM 4.3 mmol/L (3.5-5.1); SGOT/AST 23 IU/L (3-35); SGPT/ALT 28 U/L (12-78); SODIUM 139 mmol/L (136-145); TOTAL PROTEIN 8.5 gm/dL (6.4-8.2)
[2021-12-04 11:07] LABS: ETHYL ALCOHOL < 3.0 mg/dl (<3); MANUAL DIFF REFLEX YES
[2021-12-04 11:09] LABS: ACT PARTIAL THROMBO TIME 23.4 SECONDS (20.0-32.1); INTERNATIONAL NORM RATIO 1.1 (2.0-3.5)
[2021-12-04 11:13] LABS: TOTAL CELLS COUNTED 100 #CELLS
[2021-12-04 11:14] LABS: PLATELET SUFFICIENCY LOW (NORMAL)
[2021-12-04 12:43] LABS: BILIRUBIN Negative (Negative); BLOOD Negative (Negative); COLOR Yellow (Yellow); GLUCOSE Negative (Negative); KETONE Negative (Negative); LEUKO ESTERASE Negative (Negative); NITRITE Negative (Negative); PH 6.5 (4.5-8.0); SPECIFIC GRAVITY >= 1.030 (1.001-1.030)
[2021-12-04 12:48] LABS: CLARITY Clear (Clear)
[2021-12-04 12:53] LABS: URINE AMPHETAMINES < 1000 (1000ng/ml); URINE BARBITURATES < 200 (200ng/ml); URINE BENZODIAZEPINES < 200 (200ng/ml); URINE CANNABINOIDS (THC) < 50 (50ng/ml); URINE COCAINE > 300 (300ng/ml); URINE METHADONE < 300 (300ng/ml); URINE OPIATES < 300 (300ng/ml)
[2021-12-04 12:57] LABS: BACTERIA TRACE
[2021-12-04 12:58] LABS: MUCOUS 3+; URINE PHENCYCLIDINE < 25 (25ng/ml)
[2021-12-04 21:45] VITALS: BP 103/63
[2021-12-05] VITALS: BP 106/63
[2021-12-05 06:08] LABS: BUN 19 mg/dl (7-24); CHLORIDE 108 mmol/L (98-107); CREATININE 0.73 mg/dL (0.70-1.30); POTASSIUM 3.8 mmol/L (3.5-5.1); SODIUM 139 mmol/L (136-145)
[2021-12-05 06:16] LABS: HEMATOCRIT 36.9 % (42.0-52.0); MEAN CELL VOLUME 85.6 fl (80.0-94.0); MEAN CORPUSCULAR HGB CONC 33.9 g/dl (33.0-37.0); MEAN PLATELET VOLUME 10.5 fl (9.6-12.3); PLATELET COUNT AUTOMATED 111 10*3/uL (130-400); RED BLOOD COUNT 4.31 10*6/uL (4.50-5.90); WHITE BLOOD COUNT 3.2 10*3/uL (4.8-10.8)
[2021-12-05 06:22] LABS: MANUAL DIFF REFLEX YES
[2021-12-05 07:26] LABS: BASOPHILS 3 % (0-1); PLATELET SUFFICIENCY LOW (NORMAL); TOTAL CELLS COUNTED 100 #CELLS
[2021-12-05 08:00] VITALS: BP 89/53
[2021-12-05 12:00] VITALS: BP 118/63
[2021-12-05 16:00] VITALS: BP 110/65
[2021-12-05 20:00] VITALS: BP 115/73
[2021-12-06] VITALS: BP 112/66
[2021-12-06 06:08] LABS: BUN 15 mg/dl (7-24); CHLORIDE 110 mmol/L (98-107); CREATININE 0.72 mg/dL (0.70-1.30); POTASSIUM 4.1 mmol/L (3.5-5.1); SODIUM 141 mmol/L (136-145)
[2021-12-06 06:18] LABS: BASO % 0.9 % (0.0-1.0); EOS # 0.2 10*3/uL (0.0-0.4); EOS % 4.6 % (1.0-4.0); HEMATOCRIT 37.7 % (42.0-52.0); LYMPH # 1.6 10*3/uL (1.3-4.4); LYMPH % 49.8 % (27.0-41.0); MEAN CELL VOLUME 85.3 fl (80.0-94.0); MEAN PLATELET VOLUME 10.7 fl (9.6-12.3); MONO # 0.3 10*3/uL (0.1-1.0); MONO % 8.9 % (3.0-9.0); NEUT # 1.2 10*3/uL (2.3-7.9); NEUT % 35.5 % (47.0-73.0); PLATELET COUNT AUTOMATED 112 10*3/uL (130-400); RED BLOOD COUNT 4.42 10*6/uL (4.50-5.90); RED CELL DISTRI WIDTH 14.1 % (0-14.5); WHITE BLOOD COUNT 3.3 10*3/uL (4.8-10.8)
[2021-12-06 08:00] VITALS: BP 99/60
[2021-12-06 12:00] VITALS: BP 117/63
[2021-12-06 16:00] VITALS: BP 107/68
[2021-12-06 20:00] VITALS: BP 101/67
[2021-12-07] VITALS: BP 107/52
[2021-12-07 08:00] VITALS: BP 105/64
== END 2021-12-07 11:12 | DRG 774 ==
LOC: ED 09:43 → 4E 11:14 → EDHOLD 11:14 → 4E 21:07
PROVIDERS: Emergency Medicine; Student in an Organized Health Care Education/Training Program; ADMIT Internal Medicine; ATTEND Internal Medicine
DX: F13.239 Sedative, hypnotic or anxiolytic dependence with withdrawal, unspecified (principal); F14.10 Cocaine abuse, uncomplicated; L20.9 Atopic dermatitis, unspecified; B86 Scabies; B19.20 Unspecified viral hepatitis C without hepatic coma; F32.9 Major depressive disorder, single episode, unspecified; F41.1 Generalized anxiety disorder; D64.9 Anemia, unspecified; D69.6 Thrombocytopenia, unspecified; F17.210 Nicotine dependence, cigarettes, uncomplicated; D72.10 Eosinophilia, unspecified; S81.802A Unspecified open wound, left lower leg, initial encounter; S81.801A Unspecified open wound, right lower leg, initial encounter; X58.XXXA Exposure to other specified factors, initial encounter; Y93.89 Activity, other specified; Y92.89 Other specified places as the place of occurrence of the external cause; Z86.19 Personal history of other infectious and parasitic diseases; Z90.49 Acquired absence of other specified parts of digestive tract; Z80.51 Family history of malignant neoplasm of kidney; Z80.3 Family history of malignant neoplasm of breast; Z80.0 Family history of malignant neoplasm of digestive organs; Z81.1 Family history of alcohol abuse and dependence; Y99.8 Other external cause status; Z68.23 Body mass index [BMI] 23.0-23.9, adult